=== PATIENT | male | born 1985 | race Caucasian/White ===

== ENCOUNTER → 2016-11-04 | Outpatient (CLI) | payer OTHER ==
[2016-11-04 15:20] LABS: CHLORIDE,CL 102 mmol/L (98-110); SODIUM,NA 138 mmol/L (136-146)
== END ==
LOC: MW.CHRC 14:26
PROVIDERS: ATTEND Family Medicine
DX: Z51.81 Encounter for therapeutic drug level monitoring (principal); E78.5 Hyperlipidemia, unspecified; F98.8 Other specified behavioral and emotional disorders with onset usually occurring in childhood and adolescence; L91.8 Other hypertrophic disorders of the skin; Z79.899 Other long term (current) drug therapy
CPT/HCPCS: 36415; 80053; 80061; 82670; 84402; 84403; 85025

== ENCOUNTER 2017-12-31 06:53 | Emergency (ER) | payer OTHER ==
[2017-12-31] MEDS ORDERED: Ketorolac 60 MG/2 ML SDV IM ONE (07:37)
--- NOTE | 2017-12-31 07:39 | EDM.PDOC ---
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 Past medical history: As per history of present illness and as reviewed below otherwise noncontributory. Surgical history: As per history of present illness and as reviewed below otherwise noncontributory. Social history: No reported history of drug or alcohol abuse. Family history: As per history of present illness and as reviewed below otherwise noncontributory. Physical exam: HEENT: Atraumatic, normocephalic, pupils reactive, negative for conjunctival pallor or scleral icterus, mucous membranes moist, throat clear, neck supple, nontender, trachea midline. Lungs: Clear to auscultation, breath sounds equal bilaterally, chest nontender. Heart: S1S2, regular, negative for clicks, rubs, or JVD. Abdomen: Soft, nondistended, nontender. Negative for masses or hepatosplenomegaly. Negative for costovertebral tenderness. Pelvis: Stable nontender. Genitourinary: Deferred. Rectal: Deferred. Extremities: Atraumatic, negative for cords or calf pain. Neurovascular unremarkable. Neuro: Awake, alert, oriented. Cranial nerves II through XII unremarkable. Cerebellum unremarkable. Motor and sensory unremarkable throughout. Exam nonfocal. Back: Patient is tenderness in the paravertebral region of lumbar spine with associated spasm no vertebral body or point tenderness patient able stand on his toes back on his heels deep tendon reflexes are normal with no motor sensory deficits Diagnostics: CT lumbar spine Therapeutics: Toradol 60 mg IM Impression: #1 acute low back pain Definitive disposition and diagnosis as appropriate pending reevaluation and review of above. lower back area Pain Score (Numeric/FACES): 10 - Related Data Allergies Allergy/AdvReac Type Severity Reaction Status Date / Time No Known Allergies Allergy Verified 12/31/17 07:02 Home Meds: Home Meds Diclofenac Sodium [Voltaren] 1 tab PO BID 12/31/17 [History] Past Medical History HEENT History: Reports: None Cardiovascular History: Reports: None Respiratory History: Reports: None Gastrointestinal History: Reports: None Genitourinary History: Reports: None Musculoskeletal History: Reports: None Neurological History: Reports: None Psychiatric History: Reports: None Endocrine/Metabolic History: Reports: None Hematologic History: Reports: None Immunologic History: Reports: None Oncologic (Cancer) History: Reports: None Dermatologic History: Reports: None - Infectious Disease History Infectious Disease History: Reports: None - Past Surgical History Head Surgeries/Procedures: Reports: None Social & Family History - Family History Family Medical History: Noncontributory - Tobacco Use Smoking Status *Q: Never Smoker - Caffeine Use Caffeine Use: Reports: Coffee - Recreational Drug Use Recreational Drug Use: No ED ROS GENERAL - Review of Systems Review Of Systems: ROS reveals no pertinent complaints other than HPI. ED EXAM, GENERAL - Physical Exam Exam: See Below (See dictation) Course - Vital Signs Last Recorded V/S: Last Vital Signs Temp 36.6 C 12/31/17 07:03 Pulse 81 12/31/17 07:03 Resp 18 12/31/17 07:03 BP 129/70 12/31/17 07:03 Pulse Ox 98 12/31/17 07:03 - Orders/Labs/Meds Meds: Medications Discontinued Medications Generic Name Dose Route Start Last Admin Trade Name Hilary PRN Reason Stop Dose Admin Ketorolac Tromethamine 60 mg 12/31/17 07:37 12/31/17 07:42 Toradol IM 12/31/17 07:38 60 mg ONETIME ONE Administration Departure - Departure Time of Disposition: 18:53 Disposition: Home, Self-Care 01 Condition: Good Clinical Impression: Lumbar strain - Discharge Information Instructions: Back Pain, Adult, [id number] Referrals: PCP,None [Primary Care Provider] - Forms: ED Department Discharge Additional Instructions: 1. Take medication as prescribed 2. Follow up with Primary care 3. Return to ER as needed as discussed.
--- NOTE | 2017-12-31 09:52 | CT ---
EXAM DATE: 12/31/17 PATIENT'S AGE: 32 Patient: NATAN STILES Facility: [place], [place] Site . Site : 1985 Study: CT Spine Lumbar [id number]/14/2018 7:44:28 AM Ordering Physician: Doctor Luong Final Report: INDICATION: Injury with low back pain TECHNIQUE: CT lumbar spine without contrast. COMPARISON: None FINDINGS: Vertebrae: Alignment is normal. There is a relatively large irregularity in the anterior superior corner of the L5 vertebral body with a free bone fragment. The edges of the irregularity are sclerotic. Small ossification is adjacent to the anterior superior endplate of L2. No other osseous abnormality. Discs and facet joints: Disc spaces and facets are within normal limits. Extraspinal findings: Prevertebral soft tissues and visualized retroperitoneum are unremarkable. IMPRESSION: Irregularity of the anterior superior corner of L5 with a free bone fragment is of indeterminate age. This would be an atypical appearance for acute injury, however this remains possible. Remainder of the exam is unremarkable. Please note that all CT scans at this facility use dose modulation, iterative reconstruction, and/or weight-based dosing when appropriate to reduce radiation dose to as low as reasonably achievable. Dictated by Ld Jesus MD @ Dec 31 2017 8:01AM (Electronic Signature) Report Signed by Proxy. ZORA
== END 2017-12-31 08:57 | disposition home or self-care (01) ==
LOC: MW.ED 06:53
DX: S39.012A Strain of muscle, fascia and tendon of lower back, initial encounter (principal); X50.0XXA Overexertion from strenuous movement or load, initial encounter
CPT/HCPCS: 72131; 96372; 99283; J1885

== ENCOUNTER 2019-10-15 09:12 | Emergency (ER) | payer BC, OTHER ==
[2019-10-15] MEDS ORDERED: Benzocaine 20% Topical Spray UD MUCMEM ONE (09:15)
[2019-10-15] MEDS ORDERED: Lidocaine 2% Viscous Solution 15 ML Cup PO ONE (09:15)
--- NOTE | 2019-10-15 09:30 | EDM.PDOC ---
ED HPI GENERAL MEDICAL PROBLEM - General Chief Complaint: General Stated Complaint: TOOTH PAIN Time Seen by Provider: 10/15/19 09:26 Source of Information: Reports: Patient History Limitations: Reports: No Limitations - History of Present Illness INITIAL COMMENTS - FREE TEXT/NARRATIVE: 34-year-old male presents to the emergency room with a chief complaint of underneath his veneer. Patient states he has no fever chills but want something for the pain. 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 Mouth Pain Score (Numeric/FACES): 5 - Related Data Allergies Allergy/AdvReac Type Severity Reaction Status Date / Time No Known Allergies Allergy Verified 10/15/19 09:23 Home Meds: Home Meds Diclofenac Sodium [Voltaren] 1 tab PO BID 12/31/17 [History] Past Medical History HEENT History: Reports: None Cardiovascular History: Reports: None Respiratory History: Reports: None Gastrointestinal History: Reports: None Genitourinary History: Reports: None Musculoskeletal History: Reports: None Neurological History: Reports: None Psychiatric History: Reports: None Endocrine/Metabolic History: Reports: None Hematologic History: Reports: None Immunologic History: Reports: None Oncologic (Cancer) History: Reports: None Dermatologic History: Reports: None - Infectious Disease History Infectious Disease History: Reports: None - Past Surgical History Head Surgeries/Procedures: Reports: None Social & Family History - Family History Family Medical History: Noncontributory - Caffeine Use Caffeine Use: Reports: Coffee ED ROS GENERAL - Review of Systems Review Of Systems: See Below Constitutional: Reports: No Symptoms HEENT: Reports: No Symptoms Respiratory: Reports: No Symptoms Cardiovascular: Reports: No Symptoms Endocrine: Reports: No Symptoms GI/Abdominal: Reports: No Symptoms : Reports: No Symptoms Musculoskeletal: Reports: No Symptoms Skin: Reports: No Symptoms Neurological: Reports: No Symptoms Psychiatric: Reports: No Symptoms Hematologic/Lymphatic: Reports: No Symptoms Immunologic: Reports: No Symptoms ED EXAM, GENERAL - Physical Exam Exam: See Below General Appearance: Alert, WD/WN, No Apparent Distress Eye Exam: Bilateral Eye: Normal Fundi, Normal Inspection, PERRL Nose: Normal Inspection, Normal Mucosa, No Blood Throat/Mouth: Normal Inspection, Normal Lips Head: Atraumatic, Normocephalic Neck: Normal Inspection Respiratory/Chest: No Respiratory Distress Cardiovascular: Normal Peripheral Pulses Back Exam: Normal Inspection Extremities: Normal Inspection Neurological: Alert, Oriented, Normal Cognition Psychiatric: Normal Affect, Normal Mood Course - Vital Signs Last Recorded V/S: Last Vital Signs Temp 98.1 F 10/15/19 09:19 Pulse 87 10/15/19 09:19 Resp 17 10/15/19 09:19 BP 155/91 H 10/15/19 09:19 Pulse Ox 98 10/15/19 09:19 - Orders/Labs/Meds Meds: Medications Discontinued Medications Generic Name Dose Route Start Last Admin Trade Name Freq PRN Reason Stop Dose Admin Benzocaine 2 each 10/15/19 09:15 Hurricaine One 20% MUCMEM 10/15/19 09:16 ONETIME ONE Lidocaine HCl 15 ml 10/15/19 09:15 Xylocaine 2% Viscous PO 10/15/19 09:16 ONETIME ONE Departure - Departure Time of Disposition: 09:29 Disposition: Home, Self-Care 01 Condition: Good Clinical Impression: Pain, dental - Discharge Information Referrals: Billy Ashley MD [Primary Care Provider] - Sepsis Event Note - Evaluation Sepsis Screening Result: No Definite Risk - Focused Exam Vital Signs: Vital Signs Temp Pulse Resp BP Pulse Ox 10/15/19 09:19 98.1 F 87 17 155/91 H 98 Date Exam was Performed: 10/15/19 Time Exam was Performed: 09:26
== END 2019-10-15 09:43 | disposition home or self-care (01) ==
LOC: MW.ED 09:12
DX: K08.89 Other specified disorders of teeth and supporting structures (principal)
CPT/HCPCS: 99282; A9270